=== PATIENT | female | born 1995 | race Caucasian/White ===

== ENCOUNTER 2017-01-04 10:01 | Inpatient (IN) | payer MEDICAID ==
[~2017-01-04] VITALS: Ht 162.6 cm; Wt 127.0 kg
--- NOTE | ~2017-01-04 | OR ---
PATIENT'S NAME: BRANDEN BATRES [facility] AGE: 21 Y [address] ROOM: [address] [address] LOCATION: GOBS ADMIT DATE: 01/04/2017 OR/Procedure Report DISCHARGE DATE: FAMILY PHYSICIAN: Nata Hurtado MD ATTENDING PHYSICIAN: DENTON LOPEZ SURGEON: Denton Lopez MD DENTAL SECRETARY: Nata Hurtado M.D. Her assistance was required for delivery of the fetus as well as adequate exposure during the case. DATE OF PROCEDURE: 01/04/2017 PREOPERATIVE DIAGNOSES: 1. Intrauterine at 39 weeks 4 days. 2. History of section. 3. Gestational diabetes class A2. 4. Obesity. 5. Tobacco abuse. POSTOPERATIVE DIAGNOSES: 1. Intrauterine at 39 weeks 4 days. 2. History of section. 3. Gestational diabetes class A2. 4. Obesity. 5. Tobacco abuse. PROCEDURE PERFORMED: Repeat low transverse section. ANESTHESIA: Spinal. FINDINGS: Viable female with Apgars of 8 and 8 and weight of 8 pounds 6 ounces. Placenta intact with three-vessel cord. Normal uterus, normal fallopian tubes, and ovaries bilaterally. COMPLICATIONS: None. ESTIMATED BLOOD LOSS: 600 mL. INDICATIONS: The patient is a 21-year-old female with intrauterine at 39 weeks and 4 days with history of previous section, who presented for scheduled repeat section. Her has been complicated by gestational diabetes for which she is taking glyburide and insulin. She was counseled about the risks of procedure to include, but are not be limited to bleeding, infection, damage to surrounding organs and tissues including bowel, bladder, blood vessels, ureters. By the nurse, she PATIENT'S NAME: BRANDEN BATRES [facility] AGE: 21 Y [address] ROOM: [address] [address] LOCATION: [facility] ADMIT DATE: 01/04/2017 OR/Procedure Report DISCHARGE DATE: FAMILY PHYSICIAN: Nata Hurtado MD ATTENDING PHYSICIAN: DENTON LOPEZ was also counseled on needing additional procedures or hospitalizations due to any complications. DESCRIPTION OF PROCEDURE: The patient was taken to the operating room, where spinal anesthesia was placed. She was placed in dorsal supine position with leftward tilt. A Stephens catheter was placed. She was then prepped and draped in the usual sterile fashion. SCDs were in place. Anesthesia was found to be adequate. A time-out was performed. A scalpel was then used to make a Pfannenstiel incision and carried down to the underlying fascia. The fascia was scored and the incision was carried out laterally with Mack scissors bilaterally. The fascia was then dissected off the rectus muscles superiorly and inferiorly with sharp and blunt dissection. The peritoneum was then identified and entered sharply. This was then extended bluntly. Bladder blade was placed for visualization. A scalpel was then used to make a transverse incision on the lower uterine segment. This was extended in cephalocaudal direction. The membranes were then ruptured with clear fluid. The head was then grasped and delivered through the incision followed by the remainder of the fetus. The cord was clamped and cut. The mouth and nose were bulb suctioned. The was taken over to the awaiting delivery team. Cord blood was obtained. The placenta was then expressed intact. The uterus was exteriorized and cleared of remaining clots and debris. It was noted to be atonic despite receiving Pitocin. Therefore, the patient received 0.2 mg of methargen IM. The hysterotomy was then closed in a running locked fashion with 0 chromic suture. Hemostasis was noted. The uterus was placed into the abdominal cavity. The hysterotomy was re-examined and again noted to be hemostatic. The fascia and rectus muscle were inspected and noted to be hemostatic. The fascia was then closed in a running fashion using 0 PDS suture on a loop. Subcutaneous tissue was then irrigated and any areas of bleeding were cauterized. It was then closed with 2-0 Vicryl in a running fashion. The skin was closed with 4-0 Monocryl in a subcuticular fashion and a Prevena dressing was then placed. Instrument, sponge, and needle counts were correct prior to abdominal closure at the conclusion of the case. DISPOSITION: Mom stable. Baby to NICU for respiratory distress. MD XAVI HOLM/elias /[id number] d: 01/04/17 1518 t: 01/07/17 0849, OPERATIVE SUMMARY
[2017-01-04] MEDS ORDERED: PRENATAL 1+1)(P1 TAB PO (10:52)
[2017-01-04] MEDS ORDERED: FEOSOL325 MG PO (10:53)
[2017-01-04] MEDS ORDERED: GLYBURIDE5 MG PO (10:54)
[2017-01-04] MEDS ORDERED: HUMALOG MI100 UNIT/5 SUB-Q (10:55)
[2017-01-04 11:06] LABS: BASOPHIL % 0.2 %; EOSINOPHIL # 0.1 K/uL (0.0-0.5); EOSINOPHIL % 0.9 %; HEMATOCRIT 30.7 % (33.0-46.0); HEMOGLOBIN 10.1 g/dL (11.0-15.0); IMMATURE GRANULOCYTE # 0.2 K/uL (0.0-0.3); IMMATURE GRANULOCYTE % 1.2 %; LYMPHOCYTE # 1.7 K/uL (0.8-4.0); LYMPHOCYTE % 13.5 %; MCH 28.1 pg (27.0-34.0); MCHC 32.9 gm/dL (32.0-36.5); MCV 85.3 fl (83.0-98.0); MONOCYTE # 0.9 K/uL (0.0-1.0); MONOCYTE % 7.2 %; MPV 9.8 fl (9.4-12.4); NEUTROPHIL # (ANC) 9.5 K/uL (1.8-7.8); NRBC % 0 /100WBC (0-0.00); PLATELET COUNT 323 K/uL (150-450); RDW-CV 13.8 % (11.9-14.6); WBC 12.3 K/uL (4.0-11.0)
[2017-01-05 07:13] LABS: BASOPHIL % 0.3 %; EOSINOPHIL # 0.1 K/uL (0.0-0.5); HEMATOCRIT 30.4 % (33.0-46.0); HEMOGLOBIN 9.7 g/dL (11.0-15.0); IMMATURE GRANULOCYTE # 0.1 K/uL (0.0-0.3); IMMATURE GRANULOCYTE % 0.8 %; LYMPHOCYTE # 1.6 K/uL (0.8-4.0); LYMPHOCYTE % 11.2 %; MCH 27.6 pg (27.0-34.0); MCHC 31.9 gm/dL (32.0-36.5); MCV 86.6 fl (83.0-98.0); MONOCYTE % 6.9 %; MPV 9.9 fl (9.4-12.4); NEUTROPHIL # (ANC) 11.7 K/uL (1.8-7.8); NEUTROPHIL % 79.8 %; NRBC % 0 /100WBC (0-0.00); PLATELET COUNT 313 K/uL (150-450); RBC 3.51 M/uL (3.50-5.00); RDW-CV 13.9 % (11.9-14.6); WBC 14.6 K/uL (4.0-11.0)
[2017-01-06] MEDS ORDERED: SURFAK240 MG PO (11:31)
[2017-01-06] MEDS ORDERED: PERCOCET 5-3251 EACH PO (11:32)
[2017-01-06] MEDS ORDERED: MOTRIN800 MG PO (11:32)
== END 2017-01-06 13:05 | disposition disaster alternative care site (69) | DRG 765 ==
LOC: GOBS 10:01
PROVIDERS: ADMIT Obstetrics & Gynecology
PROC: 10D00Z1 Extraction of Products of Conception, Low, Open Approach (ICD-10-PCS; principal; 2017-01-04)
DX: O34.219 Maternal care for unspecified type scar from previous cesarean delivery (principal); Z68.42 Body mass index [BMI] 45.0-49.9, adult; E66.9 Obesity, unspecified; O24.429 Gestational diabetes mellitus in childbirth, unspecified control; Z3A.39 39 weeks gestation of pregnancy; Z37.0 Single live birth; O99.334 Smoking (tobacco) complicating childbirth; F17.210 Nicotine dependence, cigarettes, uncomplicated; Z79.4 Long term (current) use of insulin
CPT/HCPCS: J0690; J1885; J2001; J2210; J7120